=== PATIENT | female | born 1960 | race Hispanic/Latino ===

== ENCOUNTER 2017-09-23 19:30 | Emergency (ER) | payer BC ==
[~2017-09-23] VITALS: Ht 162.6 cm; Wt 93.0 kg
--- OUTSIDE RECORDS SUMMARY | 2017-09-23 19:34 | XMS REPORT | Summary of Care ---
Author Author Jose KIM, Macu [facility] Unknown Address Unknown Phone Unavailable Care Team Providers Care Design Technology Teacher Name Role Phone JOSEFA Clifton, MOMO Unavailable Unavailable JOSEFA WARNER [place], MOMO TOABR Unavailable Unavailable Unavailable Unavailable Functional Status Name Dates Details Functional status health issues are not documented Status: Name Dates Details Cognitive status health issues are not documented Status: Problems Name Dates Details Bursitis of hip (726.5, M70.70) Status: Active Insomnia (780.52, G47.00) Status: Active Lumbar radiculopathy (724.4, M54.16) Status: Active Vision loss (369.9, H54.7) Status: Active Fatigue (780.79, R53.83) Status: Active Dyspnea on exertion (786.09, R06.09) Status: Active Hearing loss (389.9, H91.90) Status: Active Vertigo (780.4, R42) Status: Active Anal fissure (565.0, K60.2) Status: Active Skin lesion (709.9, L98.9) Status: Active Candidiasis, vagina (112.1, B37.3) Status: Active Postmenopausal atrophic vaginitis (627.3, N95.2) Status: Active Abscess of right genital labia (616.4, N76.4) Status: Active Trigeminal neuralgia (350.1, G50.0) Status: Active Intertrigo (695.89, L30.4) Status: Active Dysuria (788.1, R30.0) Status: Active Headache (784.0, R51) Status: Active Seborrheic dermatitis (690.10, L21.9) Status: Active Low back pain (724.2, M54.5) Status: Active Vaginitis (616.10, N76.0) Status: Active Sore throat (462, J02.9) Status: Active Body aches (780.96, R52) Status: Active Sore throat (462, J02.9) Status: Active Influenza A (487.1, J10.1) Status: Active Uric acid nephrolithiasis (274.11, N20.0) Status: Active Gout (274.9, M10.9) Status: Active Urinary urgency (788.63, R39.15) Status: Active Urinary frequency (788.41, R35.0) Status: Active RAD (reactive airway disease) (493.90, J45.909) Status: Active Post-viral cough syndrome (786.2, R05) Status: Active Irritable bladder (596.89, N32.89) Status: Active Diarrhea (787.91, R19.7) Status: Active Abdominal pain, RLQ (right lower quadrant) (789.03, R10.31) Status: Active Persistent cough for 3 weeks or longer (786.2, R05) Status: Active Acute colitis (558.9, K52.9) Status: Active Colon wall thickening (569.89, K63.9) Status: Active Leukocytosis (288.60, D72.829) Status: Active Acute recurrent sinusitis (461.9, J01.91) Status: Active Depression (311, F32.9) Status: Active Abnormal CT scan, gastrointestinal tract (793.4, R93.3) Status: Active Colon cancer screening (V76.51, Z12.11) Status: Active Abdominal pain (789.00, R10.9) Status: Active Abdominal tenderness, RLQ (right lower quadrant) (789.63, R10.813) Status: Active Diverticulitis of colon (562.11, K57.32) Status: Active Menopause (627.2, Z78.0) Status: Active BMI 34.0-34.9,adult (V85.34, Z68.34) Status: Active Impaired fasting glucose (790.21, R73.01) Status: Active 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, 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) Status: Active Well-controlled hypertension (401.9, I10) Status: Active Facial pain (784.0, R51) Status: Active Acute maxillary sinusitis (461.0, J01.00) Status: Active Oral thrush (112.0, B37.0) Status: Active History of Nephrolithiasis (V13.01) Status: Resolved Diverticular disease of large intestine without perforation or abscess (562.10 , K57.30) Status: Active Influenza B (487.1, J10.1) Status: Active Taking medication for chronic disease (799.9, R69) Status: Active Screening for hypothyroidism (V77.0, Z13.29) Status: Active Excessive weight gain (783.1, R63.5) Status: Active BMI 33.0-33.9,adult (V85.33, Z68.33) Status: Active Essential (primary) hypertension (401.9, I10) Status: Active Elevated hemoglobin A1c measurement (790.29, R73.09) Status: Active DRAKE (generalized anxiety disorder) (300.02, F41.1) Status: Active Excessive body weight gain (783.1, R63.5) Status: Active BMI 33.0-33.9,adult (V85.33, Z68.33) Status: Active Upper respiratory infection (465.9, J06.9) Status: Active Breast cancer screening (V76.10, Z12.31) Status: Active Valgus deformity of both great toes (735.0, M20.11) Status: Active Plantar fasciitis of right foot (728.71, M72.2) Status: Active Bilateral bunions (727.1, M21.611) Status: Active Hammer toes of both feet (735.4, M20.41) Status: Active Ganglion cyst of left foot (727.43, M67.472) Status: Active Planovalgus deformity of foot, acquired, left (736.79, M21.6X2) Status: Active Planovalgus deformity of foot, acquired, right (736.79, M21.6X1) Status: Active Encounter for routine gynecological examination with Papanicolaou smear of cervix (V72.31, Z01.419) Status: Active Screening for vaginal cancer (V76.47, Z12.72) Status: Active History of hepatitis A (V12.09, Z86.19) Status: Active Abnormal mammogram (793.80, R92.8) Status: Active Hyperuricemia (790.6, E79.0) Status: Active Uric acid renal calculus (274.11, N20.0) Status: Active Prediabetes (790.29, R73.03) Status: Active Dry eye of left side (375.15, H04.122) Status: Active Blurry vision, left eye (368.8, H53.8) Status: Active Abnormal ultrasound of breast (793.89, R92.8) Status: Active Left breast mass (611.72, N63.20) Status: Active Abnormal mammogram (793.80, R92.8) Status: Active Impingement syndrome of left shoulder (726.2, M75.42) Status: Active Invasive ductal carcinoma of breast (174.9, C50.919) Status: Active Left otitis media (382.9, H66.92) Status: Active Acute pharyngitis due to other specified organisms (462, J02.8) Status: Active Acute bronchitis due to other specified organisms (466.0, J20.8) Status: Active Left otitis media (382.9, H66.92) Status: Active Acute bronchitis due to other specified organisms (466.0, J20.8) Status: Active Medications Name Dates Details Allopurinol 300 MG Oral Tablet TAKE 1 TABLET BY MOUTH DAILY Quantity: 90 MOMO RIVERO M.D. * Start : 05-Jan-2017 Active Multi Vitamin/Minerals Oral Tablet TAKE 1 TABLET DAILY. * Refills: 0 Active Probiotic Oral Capsule TAKE 1 CAPSULE DAILY * Refills: 0 Active Escitalopram Oxalate 5 MG Oral Tablet TAKE 1 TABLET BY MOUTH DAILY * Quantity: 90 Refills: 2 MOMO RIVERO M.D. * Start : 19-Feb-2017 Active Fiber CAPS TAKE 1 CAPSULE DAILY * Refills: 0 Active Metoprolol Succinate ER 25 MG Oral Tablet Extended Release 24 Hour TAKE ONE TABLET BY MOUTH EVERY DAY * Quantity: 90 Refills: 2 MOMO RIVERO M.D. * Start : 31-May-2014 Active Caltrate 600+D Plus TABS TAKE 1 TABLET DAILY DIRECTED. * Refills: 0 Active Accu-Chek Modesta Plus In Vitro Strip Check glucose once daily to include pre and post meals with goal value as discussed * Quantity: 1 Refills: 1 JOSEFA Clifton MOMO * Start : 29-Feb-2016 Active 50 Strip Box Accu-Chek FastClix Lancets USE DIRECTED for blood sugar monitoring. * Quantity: 1 Refills: 2 JOSEFA Clifton, MOMO * Start : 29-Feb-2016 Active 102 Miscellaneous Box Naproxen 500 MG Oral Tablet TAKE 1 TABLET DAILY With Food * Quantity: 60 Refills: 1 MOMO RIVERO M.D. * Start : 03-Mar-2016 Active Lancets USE AND DISCARD 1 LANCET DAILY TO MONITOR BLOOD SUGAR * Quantity: 100 Refills: 2 JOSEFA Clifton, MOMO * Start : 05-Mar-2016 Active BuPROPion HCl ER (XL) 150 MG Oral Tablet Extended Release 24 Hour TAKE 1 TABLET DAILY * Quantity: 30 Refills: 2 JOSEFA Clifton, MOMO * Start : 10-Mar-2017 Active Amoxicillin-Pot Clavulanate 875-125 MG Oral Tablet TAKE 1 TABLET BY MOUTH TWICE A DAY WITH FOOD * Quantity: 20 Refills: 0 JOSEFA Clifton, MOMO * Start : 07-Jul-2017 Active Allergies and Adverse Reactions Name Dates Details Amoxicillin TABS (Allergy) Status: Denied clindamycin (Allergy) Status: Active Codeine Derivatives (Allergy) Status: Active Iodine SOLN (Allergy) Status: Active Sulfa Drugs (Allergy) Reaction: Angioedema Status: Active Latex (Allergy) Status: Active Past Medical History Name Dates Details History of essential hypertension (V12.59, Z86.79) Status: Resolved History of hematuria (V13.09, Z87.448) Status: Resolved History of Multiparity (V61.5, Z64.1) Status: Resolved History of Nephrolithiasis (V13.01) Status: Resolved Procedures Procedure Dates Details History of Hysterectomy Completed History of Lithotomy Completed History of Umbilical Hernia Repair Completed History of Oral Surgery Tooth Extraction Completed History of lymphadenectomy Completed Immunization Name Dates Details Influenza on: 03-Jan-2016 Fluzone INJ Comments: Approx [id number] Tdap on: 16-Feb-2017 Family History Name Dates Details Family history of Uterine Cancer (V16.49) Status: Active Name Dates Details Family history of Diabetes Mellitus (V18.0) Status: Active Family history of Hypertension (V17.49) Status: Active No significant family history Status: Active Social History Name Dates Details - Status: Name Dates Details Never smoker Vital Signs Date Test Result Details [id number] BP Systolic 110 mm[Hg] Status: Comments: Location: LUE; Position: Sitting BP Diastolic 70 mm[Hg] Status: Comments: Location: LUE; Position: Sitting Height 64 in Status: Weight 200 lb Status: Body Mass Index Calculated 34.33 kg/m2 Status: Body Surface Area Calculated 1.96 m2 Status: Temperature 88 f Status: Comments: Method: Temporal Heart Rate 88 /min Status: Comments: Location: L Radial; Quality: Normal Respiration Rate 16 /min Status: Comments: Quality: Normal Physical Findings 3 Status: Comments: Pain Scale Results Date Description Value Details [id number] [O] Flu Test (in Office ) Flu A Negative (Normal) Flu B Negative (Normal) Plan of Care Name Dates Details Planned Observations Planned Goals not documented Interventions Provided Medication Changes* Amoxicillin-Pot Clavulanate 875-125 MG Oral Tablet - Start Labs/Procedures/Imaging* [O] Flu Test (in Office ); Done: 07 Jul 2017 Instructions* Patient Specific Education Given; Done: 07 Jul 2017 Medications/Immunizations Administered* MethylPREDNISolone Acetate 80 MG/ML Injection Suspension Plan* Flu swab test in office: * Administered Depo-Medrol 80 mg IM in office today * Start Augmentin 875-125 mg 1 PO BID * Start Prednisone 10 mg 2 PO for 3 days then 1 PO for 7 days Instructions Name Dates Details Instructions not documented Encounters Appointment; MOMO RIVERO M.D. Encounter Diagnosis: Problem not documented On: 13-Jul-2015 11:15 Appointment; MOMO RIVERO M.D. Encounter Diagnosis: Problem not documented On: 13-Jul-2015 13:15 Appointment; LOUANN HARVEY P.A. Encounter Diagnosis: Problem not documented On: 30-Aug-2015 11:15 Appointment; MOMO RIVERO M.D. Encounter Diagnosis: Problem not documented On: 03-Sep-2015 10:45 Appointment; RIMA CHOU P.A. Encounter Diagnosis: Problem not documented On: 03-Oct-2015 10:15 Appointment; MORENA MORRELL M.D. Encounter Diagnosis: Problem not documented On: 25-Oct-2015 16:00 Appointment; MORENA MORRELL M.D. Encounter Diagnosis: Problem not documented On: 11-Dec-2015 16:30 Appointment; ILDA MARTIN NP Encounter Diagnosis: Problem not documented On: 17-Dec-2015 10:30 Appointment; MAVIS HARRISON SECURITY PUBLIC SAFETY OFFICER Encounter Diagnosis: Problem not documented On: 02-Jan-2016 15:30 Appointment; MAVIS HARRISON SECURITY PUBLIC SAFETY OFFICER Encounter Diagnosis: Problem not documented On: 25-Jan-2016 11:00 Appointment; MAVIS HARRISON LCSW Encounter Diagnosis: Problem not documented On: 15-Feb-2016 12:30 Appointment; JUANJO COOPER RD Encounter Diagnosis: Problem not documented On: 29-Feb-2016 13:00 Appointment; MOMO RIVERO M.D. Encounter Diagnosis: Problem not documented On: 03-Mar-2016 14:45 Appointment; GINETTE JHAVERI M.D. Encounter Diagnosis: Problem not documented On: 18-Apr-2016 14:00 Appointment; GINETTE JHAVERI M.D. Encounter Diagnosis: Problem not documented On: 23-May-2016 14:00 Appointment; MOMO RIVERO M.D. Encounter Diagnosis: Problem not documented On: 08-Sep-2016 14:15 Appointment; SANTO CARRILLO M.D. Encounter Diagnosis: Problem not documented On: 05-Dec-2016 14:00 Appointment; MOMO RIVERO M.D. Encounter Diagnosis: Problem not documented On: 10-Mar-2017 14:45 Appointment; MOMO RIVERO M.D. Encounter Diagnosis: Problem not documented On: 30-Mar-2017 15:45 Appointment; MOMO RIVERO M.D. Encounter Diagnosis: Problem not documented On: 07-Jul-2017 11:00
[2017-09-23 21:46] VITALS: BP 142/86
== END 2017-09-23 21:48 | disposition home or self-care (01) ==
LOC: FSED 19:30
DX: M79.662 Pain in left lower leg (principal); M79.89 Other specified soft tissue disorders; Z85.3 Personal history of malignant neoplasm of breast
CPT/HCPCS: 93971; 99283

== ENCOUNTER 2018-08-20 17:57 | Emergency (ER) | payer BC ==
[~2018-08-20] VITALS: Ht 162.6 cm; Wt 93.0 kg
--- OUTSIDE RECORDS SUMMARY | 2018-08-20 17:59 | XMS REPORT | Summary of Care ---
Author Author Jose KIM, Mac[facility] Unknown Address Unknown Phone Unavailable Care Team Providers Care Polisher Brass Name Role Phone JOSEFA Clifton, MOMO Unavailable Unavailable JOSEFA WARNER [place], MOMO TOBAR Unavailable Unavailable Unavailable Unavailable Functional Status Name [...] of large intestine without perforation or abscess (562.10, K57.30) Status: Active Influenza B (487.1, J10.1) [...] and post meals with goal value as discus sed * Quantity: 1 Refills: 1 JOSEFA Clifton, MOMO * Start : 29-Feb-2016 Active 50 Strip Box Accu-Chek FastClix Lancets USE DIRECTED for blood sugar monitoring. * Quantity: 1 Refills: 2 JOSEFA Clifton, MOMO * Start : 29-Feb-2016 Active 102 Miscellaneous Box Naproxen 500 MG Oral Tablet TAKE 1 TABLET DAILY With Food * Quantity: 60 Refills: 1 JOSEFA Clifton, MOMO * Start : 03-Mar-2016 Active Lancets USE [...] smoker Vital Signs Date Test Result Details [id number] BP Systolic 110 mm[Hg] Status: Comments: Location: [...] Pain Scale Results Date Description Value Details [id number] [O] Flu Test (in Office ) Flu [...] documented On: 13-Jul-2015 13:15 Appointment; LOUANN HARVEY PHarjit Encounter Diagnosis: Problem not documented On: 30-Aug-2015 [...] documented On: 17-Dec-2015 10:30 Appointment; MAVIS HARRISON COMMUNITY SUPPORT SPECIALIST Encounter Diagnosis: Problem not documented On: 02-Jan-2016 15:30 Appointment; MAVIS HARRISON COMMUNITY SUPPORT SPECIALIST Encounter Diagnosis: Problem not documented On: 25-Jan-2016 11:00 Appointment; MAVIS HARRISON LCSW Encounter Diagnosis: Problem not documented On: 15-Feb-2016 12:30 Appointment; JUNAJO COOPER RD Encounter Diagnosis: Problem not documented [...]
--- NOTE | 2018-08-20 18:30 | NUR ---
PT STATES "THEY TOLD ME TO GO BACK TO [place]" PT WANTED IV D/C AND IS GOING BACK OVER TO [facility]. IV OUT
== END 2018-08-20 18:32 | disposition left against medical advice (07) ==
LOC: ER 17:57
DX: R10.9 Unspecified abdominal pain (principal); I10 Essential (primary) hypertension; Z85.3 Personal history of malignant neoplasm of breast
CPT/HCPCS: 99282